=== PATIENT | male | born 1935 | race Caucasian/White ===

== ENCOUNTER 2018-06-27 06:21 | Inpatient (IN) | payer BC, OTHER ==
[2018-06-27] MEDS ORDERED: NS 1,000 ML IV ONE (06:23)
[2018-06-27] MEDS ORDERED: DIAZEPAM 5 MG TAB PO ONE (06:23)
[2018-06-27] MEDS ORDERED: FAMOTIDINE 20 MG TAB PO ONE (06:23)
[2018-06-27] MEDS ORDERED: diphenhydrAMINE 25 MG CAP PO ONE (06:23)
[2018-06-27] MEDS ORDERED: ASPIRIN EC 325 MG TAB PO ONE (06:23)
[2018-06-27] MEDS ORDERED: LIDOCAINE 1% 300 MG/30 ML SDV ONE (06:39)
[2018-06-27] MEDS ORDERED: IOPAMIDOL (ISOVUE-370) 150 ML BTL IV ONE (06:39)
--- NOTE | 2018-06-27 07:08 | PDANEPAE ---
ANE History of Present Illness 82 yo for tavr ANE Past Medical History - Cardiovascular History Hx Hypertension: Yes Hx Arrhythmias: No Hx Chest Pain: No Hx Coronary Artery / Peripheral Vascular Disease: Yes Hx CHF / Valvular Disease: Yes Hx Palpitations: No - Pulmonary History Hx COPD: No Hx Asthma/Reactive Airway Disease: No Hx Recent Upper Respiratory Infection: No Hx Oxygen in Use at Home: No Hx Sleep Apnea: Yes ANE Review of Systems Review of Systems: - Exercise capacity METS (RN): 4 METS ANE Patient History - Allergies Allergies/Adverse Reactions: betadine Allergy (Uncoded 06/07/18 06:25) - Home Medications Home medications: home medication list seen and reviewed Home Medications: Herbals/Supplements -Info Only 06/07/18 [Last Taken Unknown] Naltrexone 50 mg PO DAILY 06/07/18 [Last Taken Unknown] Testosterone SQ QS 06/07/18 [Last Taken 06/05/18] - NPO status NPO Status: no food or drink >8 hours - Anes Hx Anes Hx: no prior problems - Smoking Hx Smoking Status: Former smoker ANE Labs/Vital Signs - Vital Signs Height: 5 ft 8 in Weight: 74.843 kg ANE Physical Exam - Airway Neck exam: FROM Mallampati Score: Class 2 Mouth exam: normal dental/mouth exam - Pulmonary Pulmonary: no respiratory distress - Cardiovascular Cardiovascular: regular rate and rhythym - ASA Status ASA Status: III ANE Anesthesia Plan Anesthesia Plan: MAC Lines/Monitors: central line
[2018-06-27] MEDS ORDERED: PROPOFOL/EMULSION 500 MG/50 ML BOTTLE IV ONE ×2 (07:16→08:28)
[2018-06-27] MEDS ORDERED: fentaNYL 100 MCG/2 ML INJ ONE (07:23)
[2018-06-27] MEDS ORDERED: ceFAZolin 2 GM/DEXTROSE 100 ML IV ONE (07:30)
--- NOTE | 2018-06-27 07:51 | PDHPUP ---
History & Physical Update H&P update statement: This history and physical update is based on an assessment of the patient which was completed after admission or registration (within 24 hours), but prior to the surgery/procedure. H&P update: H&P reviewed & patient examined, no change in patient's condition since H&P completed
--- NOTE | 2018-06-27 07:51 | PDPROPOC ---
Sedation Plan of Care Sedation Plan of Care: mental status noted, patient educated of risks, benefits , alternatives, patient can tolerate sedation ASA Classification: ASA 2 Planned drugs: other Mallampati Score: Class 2 Mallampati Reference Image: Patient passed 3-3-2 rule?: Yes
[2018-06-27] MEDS ORDERED: PROTAMINE SULFATE 50 MG/5 ML VIAL IVP ONE (08:38)
[2018-06-27] MEDS ORDERED: ONDANSETRON 4 MG/2 ML VIAL IVP PRN (08:48)
[2018-06-27] MEDS ORDERED: hydrALAZINE 20 MG/ML VIAL IVP PRN (08:48)
[2018-06-27] MEDS ORDERED: ATROPINE SULFATE 1 MG/10 ML SYR IVP PRN (08:48)
[2018-06-27] MEDS ORDERED: ONDANSETRON DISINTEGRATING 4 MG TAB PO PRN (08:48)
[2018-06-27] MEDS ORDERED: IBUPROFEN 800 MG TAB PO PRN (08:48)
[2018-06-27] MEDS ORDERED: HYDROmorphONE/DILAUDID 1 MG/ML INJ IVP PRN (08:48)
[2018-06-27] MEDS ORDERED: NALOXONE HCL 0.4 MG/ML INJ IVP PRN (09:07)
--- NOTE | 2018-06-27 09:08 | POSTANESTH ---
Post Anesthetic Evaluation Cardiovascular Status: Normal, Stable Respiratory Status: Normal, Stable Level of Consciousness/Mental Status: Can Participate in Eval Pain Control: Adequate, Prn Tx Ordered Nausea/Vomiting Control: Adequate, Prn Tx Ordered Complications Possibly Related to Anesthesia: None Noted
[2018-06-27] MEDS ORDERED: KETOROLAC 15 MG/1 ML SDV IVP ONE (10:00)
[2018-06-27] MEDS ORDERED: KETOROLAC 30 MG/1 ML SDV IVP ONE (10:00)
[2018-06-27] MEDS ORDERED: oxyCODONE IR 5 MG TAB ONE (10:26)
[2018-06-27] MEDS: oxyCODONE IR 5 MG TAB PO PRN (10:27)
--- NOTE | 2018-06-27 10:44 | CPIP ---
DATE OF PROCEDURE: 06/27/2018 INDICATION FOR PROCEDURE: Critical aortic stenosis. CO-SURGEONS: Dr. Tyrese Brand, Dr. Toñito Walker, Dr. Katherin Haque. PROCEDURE: 1. 6-Libyan sheath in left common femoral artery verified angiographically. 2. 8-Libyan sheath in right common femoral artery verified angiographically. 3. Upsizing left common femoral artery to 16-Libyan sheath with bilateral Percloses. 4. Balloon aortic valvuloplasty with 23 x 60 balloon. 5. Placement of Medtronic CoreValve Evolute R 34 mm valve by the transfemoral route. HISTORY: Briefly, this is an 82-year-old male with history of critical aortic stenosis. The patient was worked up by CT surgery and deemed to be a suitable candidate for transfemoral TAVR. DESCRIPTION OF PROCEDURE: After informed consent was obtained, the patient was brought to [facility] where the bilateral groins was prepped and draped in a sterile fashion. Patient was sedated with conscious sedation. Right IJ line was placed with a temporary pacemaker wire placed in right ventricle. 8-Fr ench sheath in the right common femoral artery verified angiographically. 6-Libyan sheath in the lef t common artery verified angiographically. Patient administered 2 g of Ancef prior to the case. Lef t groin was upsized to a 16-Libyan sheath and bilateral Percloses were done. The patient received 2 g of Ancef IV. Valve was crossed with AL1 catheter, straight stiff Glidewire, switched out for a pigtail catheter, s witched out for a Confida wire. BAV commenced with a 23 x 60 balloon. After this was performed, the balloon was removed. We then proceeded with placement of a Medtronic CoreValve Evolute R 34 mm valv e. This was deployed successfully. Patient 100 beats per minute. After deployment, there was a trivial perivalvular leak noted with excellent hemodynamic estimations. At this time, the wir e was pulled back. The guide catheter was pulled back. The left groin was closed with bilateral Per closes. The right groin was closed with an 8-Libyan Angio-Seal. The patient tolerated the procedure well. No complications. IMPRESSION: Successful placement of Medtronic CoreValve Evolute R 34 mm valve by the transfemoral ro [place]. PLAN: The patient will be admitted overnight. If clinically, will be discharged in the next 24 to 4 8 hours. The patient's pacemaker will be kept in place for the next 3 hours barring any electrical a bnormality. /[id number]/MODL
--- NOTE | 2018-06-27 11:44 | PDMN ---
Medical Necessity Medical necessity: [facility] [place] [facility] S1320 aortic valve replacement, transcatheter 3 days INPT only OP: transfemoral TAVR per fax from [facility], 06/27 admission APPROVED, auth#[id number]. [facility] fax# [phone].
--- NOTE | 2018-06-27 11:49 | GOP ---
DATE OF OPERATION: 06/27/2018 SURGEON: Tyrese Brand MD PREOPERATIVE DIAGNOSIS: Severe symptomatic aortic stenosis. POSTOPERATIVE DIAGNOSIS: Severe symptomatic aortic stenosis. PROCEDURE PERFORMED: Transcatheter aortic valve replacement using a 34 mm Evolute-R device via left femoral access. FINDINGS: INDICATIONS: The patient is an 82-year-old gentleman with progressive dyspnea on exertion. He has a severe symptomatic aortic stenosis and was recommended to undergo transcatheter aortic valve replace ment after review by 2 surgeons. DESCRIPTION OF PROCEDURE: Patient was taken to the oven laborer, placed on table in supine position. Af ter sterile prep and drape, we anesthetized both groins. A transvenous pacemaker with balloon tip wa s positioned in the RVOT, tested and found to be functioning appropriately. Next, on the left side i t was obtained using Seldinger technique and the 14-Indian sheath was then placed and the patient was fully heparinized. On the right side, 8-Indian sheath was placed without difficulty. Next, we cros sed the valve and a pre-balloon valvuloplasty with a 23 mm balloon was performed without event. Next , the pigtail catheter was positioned in the noncoronary cusp of the aortic valve. The device itself was brought up onto the field and, with Dr. Jones in position 1 and myself position 2, we deployed a cross [place] band anulus without difficulty. Post deployment, there was no significant paravalvular l eak. The sheaths were then removed. The left side was closed using the 2 Perclose devices. The rig ht side was closed with an Angio-Seal. The patient tolerated this well and returned to the recovery area in stable condition. /[id number]/MODL
[2018-06-27] MEDS: ACETAMINOPHEN 325 MG TAB PO SCH ×3 (13:09→23:39)
[2018-06-27] MEDS ORDERED: NALTREXONE 4.5 MG PO SCH (21:00)
[2018-06-28 04:35] LABS: PLATELET COUNT 189 10^3/uL (150-400)
[2018-06-28 04:43] LABS: INR 0.96 (0.83-1.16)
[2018-06-28] MEDS: ACETAMINOPHEN 325 MG TAB PO SCH ×3 (05:52→12:09)
--- NOTE | 2018-06-28 06:11 | CPEKG ---
Test Reason : OPEN Blood Pressure : / mmHG Vent. Rate : 057 BPM Atrial Rate : 057 BPM P-R Int : 201 ms QRS Dur : 106 ms QT Int : 476 ms P-R-T Axes : 071 010 249 degrees QTc Int : 464 ms Sinus rhythm Probable LVH with secondary repol abnrm Anterior Q waves, possibly due to LVH Abnormal T, probable ischemia, lateral leads IVCD Confirmed by Jose Rangel ([id number]) on 06/28/2018 6:11:24 AM Referred By: Confirmed By:Jose Rangel
--- NOTE | 2018-06-28 06:57 | PDCARPN ---
Cardiology Progress Note Chief Complaint: SOB Assessment/Plan: Assessment: s/p TAVR Plan: 06/28/18 06:56 doing well OOB IS check echo d/c home later today if stable Subjective: doing well Reviewed/Discussed With: multidisciplinary team Time Spent with Patient: greater than 25 minutes Time Spent with Patient: Greater than 25 minutes spent on this patients care, greater than 50% of time spent counseling, educating, and coordinating care regarding the above mentioned plan. Objective: Vital Signs (8 Hrs) Temp Pulse Resp BP Pulse Ox 06/28/18 04:00 37.1 C 69 16 161/61 H 93 06/27/18 23:03 36.8 C 64 16 180/61 H 95 Intake/Output (24 Hrs) 06/27/18 06/28/18 06/29/18 05:59 05:59 05:59 Intake Total 800 Output Total 400 Balance 400 Intake: Oral (ml) 800 Output: Urine (ml) 400 Urinal 400 Other: Weight 74.843 kg Number of Voids Toilet 2 Result Diagrams: 06/28/18 03:58 06/28/18 03:58 - Physical Exam Constitutional: no apparent distress Eyes: PERRL Ears, Nose, Mouth, Throat: moist mucous membranes Cardiovascular: regular rate and rhythm Peripheral Pulses: 1+: femoral (R), femoral (L) Respiratory: clear to auscultate bilat Gastrointestinal: normoactive bowel sounds Genitourinary: no suprapubic tenderness Skin: no rashes Musculoskeletal: no muscular tenderness Neurologic: AAOx3 Psychiatric: cooperative ICD10 Worksheet Patient Problems: Problems Problem Status Onset Aortic stenosis Acute - ICD10 Problem Qualifiers (1) Aortic stenosis Qualifiers: Cardiac valve disease etiology: nonrheumatic Qualified Code(s): I35.0 - Nonrheumatic aortic (valve) stenosis
[2018-06-28] MEDS: oxyCODONE IR 5 MG TAB PO PRN (10:09)
--- NOTE | 2018-06-28 11:07 | ECHO ---
[email or web address] [address] [address] Main: [phone] Fax: Transthoracic Echocardiogram Name: SUZI SYLVESTER MR#: [id number] Study Date: 06/28/2018 Study Time: 09:37 AM Date of : 1935 Age: 82 year(s) Height: 172.7 cm (68 in.) Weight: 74.84 kg (165 lb.) BSA: 1.88 m2 Gender: Male Examination: Echo Indication: Post TAVR Image Quality: Contrast: Requested by: Toño Sargent BP: 147 mmHg/62 mmHg Heart Rate: Rhythm: Normal sinus rhythm Indication: Post TAVR Procedure Staff Logistics Solution Manager: Ian Jolly RDCS Reading Physician: Toño Sargent MD Requesting Provider: Conclusions: Normal global systolic LV function. EF is 69 %. There is a percutaneious CoreValve in the aortic position. There is no compromise of the mitral valve. there is preserved LV systolic function with no pericardial effusion. There is no obvious significant AI The AV Vmax is 2.2 m/s with a AV mean PG of 10 mmHg. Measurements: Chambers Valvular Assessment AV/MV Valvular Assessment TV/PV Normal Normal Normal Name Value Range Name Value Range Name Value Range IVSd (2D): 1.0 cm (0.6 cm-1.1 AV Vmax: 2.29 m/s (1 m/s-1.7 PV Vmax: 1.14 m/s (0.6 m/s-0.9 cm) m/s) m/s) LVDd (2D): 5.3 cm (4.2 cm-5.9 AV maxP mmHg ( - ) PV PGmax: 5 mmHg ( - ) cm) AV meanP mmHg ( - ) LVDs (2D): 3.2 cm (2.1 cm-4 LVOT Vmax: 1.11 m/s (0.7 m/s-1.1 cm) m/s) LVPWd (2D): 1.0 cm (0.6 cm-1 ALIX (Vmax): 1.7 cm2 ( - ) cm) ALIX (VTI): 2.0 cm ( - ) LVOTd 2.1 cm 2.1 cm mm MV E Vmax: 0.72 m/s ( - ) LVEF (2D): 69 (>=54 %) MV A Vmax: 1.09 m/s ( - ) MV E/A: 0.66 ( - ) Continued Measurements: Chambers Valvular Assessment AV/MV Name Value Name Value LADs Lon.8 cm MV E/E' Septal: 13.80 LA Area: 16.7 cm2 MV E/E' Lateral: 17.90 LA Volume: 53 ml Patient: SUZI SYLVESTER Study Date: 06/28/2018 Page 1 of 2 09:37 AM LA Volume Index: 28.2 ml/m2 Findings: Left Ventricle: Normal size left ventricle. No LV hypertrophy. Normal global systolic LV function. EF is 69 %. No regional wall motion abnormality. Grade 1 diastolic dysfunction (abnormal relaxation). Right Ventricle: Normal size right ventricle. Normal RV function. Left Atrium: The left atrium is normal in size. Right Atrium: The right atrium is normal in size. Mitral Valve: Trivial to mild mitral regurgitation. Aortic Valve: There is a percutaneious CoreValve in the aortic position. There is no compromise of the mitral valve. there is preserved LV systolic function with no pericardial effusion. There is no obvious significant AI The AV Vmax is 2.2 m/s with a AV mean PG of 10 mmHg. Tricuspid Valve: The tricuspid valve is normal in appearance and function. Pulmonic Valve: The pulmonic valve is normal in appearance and function. Aorta: The aorta is normal. Pericardium: No pericardial effusion. (No Signature Object) Patient: SUZI SYLVESTER Study Date: 06/28/2018 Page 2 of 2 09:37 AM [id number]
[2018-06-28] MEDS ORDERED: LOSARTAN POTASSIUM 25 MG TAB PO SCH (11:30)
--- NOTE | 2018-06-28 11:51 | GDS ---
DISCHARGE DIAGNOSIS: Aortic stenosis. HOSPITAL COURSE: Briefly, this is an 82-year-old male with history of critical, severe symptomatic a ortic stenosis who was deemed to be a suitable candidate for transfemoral TAVR. The patient underwen t successful TAVR placement on 06/27/2018, with Medtronic CoreValve 34 mm valve. Post-procedure, the patient has done very well, been ambulating in the halls 3 hours after procedure. Echocardiogram shows normal ventricular function with normal TAVR with no perivalvular leak. The p atient has been in sinus rhythm with left bundle branch block since procedure. The patient will be discharged home this morning with his home medications, including baby aspirin an d Plavix. He will follow up in the office in 1 week's time. /[id number]/MODL
[2018-06-28 12:08] VITALS: BP 150/59
--- NOTE | 2018-06-28 13:32 | ASMTLACE ---
THOMAS Length of stay for Answers: 1 day current admission Acuity / Level of Answers: Yes Care: Did the patient have an inpatient admission? Comorbidities - select Answers: Congestive heart failure all that apply Coronary Artery Disease Other Notes: HTN, valve disease # of Emergency department Answers: 0 visits in the last 6 months Score: 9 Date Signed: 06/28/2018 01:31 PM Electronically Signed By:Rebecca Cano
--- NOTE | 2018-06-28 13:35 | ASDISCHSUM ---
Discharge Information Plan Status:Home with No Needs Medically Cleared to Leave:06/27/2018 Discharge Date:06/27/2018 CM D/C Disposition:Home, Routine, Self-Care ADT D/C Disposition:Home, Routine, Self-Care Projected Discharge Date:06/27/2018 Transportation at D/C:Family Discharge Delay Reason: Follow-Up Date:06/27/2018 Discharge Slot: Final Diagnosis:Valve disease Placement Information Patient Contact Information Contact Name:CARO Relationship: Address:[address] Work Phone: City:[place] Alternate Phone: State/Zip Code:[place] [address] Email: Financial Information Financial Class:Medicare Advantage Plans Primary Plan Desc:[employer] Primary Plan Number:[id number] Secondary Plan Desc: Secondary Plan Number: Assessment Information LACE LACE Length of stay for Answers: 1 day current admission Acuity / Level of Answers: Yes Care: Did the patient have an inpatient admission? Comorbidities - select Answers: Congestive heart failure all that apply Coronary Artery Disease Other Notes: HTN, valve disease # of Emergency department Answers: 0 visits in the last 6 months Score: 9 Date Signed: 06/28/2018 01:31 PM Electronically Signed By:Rebecca Cano Case Management Discharge Plan Note Case Management Discharge Discharge Order Complete? Answers: Yes Patient to Obtain Answers: via Family Medications Transportation Arranged Answers: Family/Friends Transport will Pick (Date 06/28/2018 12:00 AM & Time) Family Notified Answers: Yes Notes: in therom Discharge Comments Notes: Spoke with pt and in the room and with pt's RN. Pt agreeable to independent discharge. No CM needs noted at this time. CM available should needs change. Date Signed: 06/28/2018 01:33 PM Electronically Signed By:Rebecca Cano Intervention Information
--- NOTE | 2018-06-28 16:30 | ECHO ---
[email or web address] [address] [address] Main: [phone] Fax: Transthoracic Echocardiogram Name: SUZI SYLVESTER MR#: [id number] Study Date: 06/27/2018 Study Time: 07:51 AM Date of : 1935 Age: 82 year(s) Height: ( ) Weight: ( ) BSA: Gender: Male Examination: Limited Echo Indication: TAVR Image Quality: Contrast: Requested by: Toño Sargent BP: / Heart Rate: Rhythm: Normal sinus rhythm Indication: TAVR Procedure Staff Professor Of Historical Theology: Ian Jolly RDCS Reading Physician: Katherin Haque MD Requesting Provider: Toño Sargent Conclusions: Normal global systolic LV function. Post TAVR: The AV Mean PG is 8 mmHg with a ALIX 1.9 cm2 The AV Vmax 1.9m/s. No pericardial effusion. Measurements: Chambers Valvular Assessment AV/MV Valvular Assessment TV/PV Normal Normal Normal Name Value Range Name Value Range Name Value Range LVOTd 2.1 cm 2.1 cm mm AV Vmax: 1.91 m/s (1 m/s-1.7 m/s) AV maxP mmHg ( - ) AV meanP mmHg ( - ) LVOT Vmax: 1.04 m/s (0.7 m/s-1.1 m/s) ALIX (Vmax): 1.9 cm2 ( - ) ALIX (VTI): 2.1 cm ( - ) AR (PHT): 570 ms ( - ) Continued Measurements: Valvular Assessment AV/MV Name Value AR Vmax: 3.65 cm/s Findings: Left Ventricle: Normal global systolic LV function. Aortic Valve: Post TAVR: The AV Mean PG is 8 mmHg with a ALIX 1.9 cm2 The AV Vmax 1.9m/s. Patient: SUZI SYLVESTER Study Date: 06/27/2018 Page 1 of 2 07:51 AM Pericardium: No pericardial effusion. There is pericardial fat. Exam Comments: There was successful implantation of percutaneous corevalve in the aortic position. There is post mild AI. There is no compromise of the mitral valve. There is preserved LV systolic function with no pericardial effusion. (No Signature Object) Patient: SUZI SYLVESTER Study Date: 06/27/2018 Page 2 of 2 07:51 AM [id number]
--- NOTE | 2018-06-29 13:55 | CPEKG ---
Test Reason : OPEN Blood Pressure : / mmHG Vent. Rate : 069 BPM Atrial Rate : 069 BPM P-R Int : 203 ms QRS Dur : 115 ms QT Int : 426 ms P-R-T Axes : 083 033 -84 degrees QTc Int : 457 ms Sinus rhythm LBBB Confirmed by Jose Rangel ([id number]) on 06/29/2018 1:55:17 PM Referred By: Confirmed By:Jose Rangel
[2018-07-03] MEDS ORDERED: TESTOSTERONE IM 100 MG/ML SYRINGE IM SCH (08:50)
== END 2018-06-28 13:50 | disposition home or self-care (01) | DRG 267 ==
LOC: FCATH 06:21 → F2W 08:48
PROVIDERS: ADMIT Internal Medicine Cardiovascular Disease; ATTEND Internal Medicine Cardiovascular Disease
PROC: 02RF38Z Replacement of Aortic Valve with Zooplastic Tissue, Percutaneous Approach (ICD-10-PCS; principal; 2018-06-27)
DX: I35.0 Nonrheumatic aortic (valve) stenosis (principal); Z00.6 Encounter for examination for normal comparison and control in clinical research program; I44.7 Left bundle-branch block, unspecified; I10 Essential (primary) hypertension
CPT/HCPCS: C1760; C1769; C1894; J0360; J0690; J1170; J1644; J1885; J2704; J2720; J3010; Q9967

== ENCOUNTER → 2018-07-28 | Outpatient (CLI) | payer OTHER | LOC: BHFA 09:15 | PROVIDERS: ATTEND Internal Medicine Cardiovascular Disease | DX: I35.9 Nonrheumatic aortic valve disorder, unspecified (principal) ==

== ENCOUNTER → 2018-08-01 | Outpatient (CLI) | payer OTHER | LOC: BHFA 13:00 | PROVIDERS: ATTEND Internal Medicine Cardiovascular Disease | DX: Z95.2 Presence of prosthetic heart valve (principal) ==